=== PATIENT | male | born 1955 | race Caucasian/White ===

== ENCOUNTER → 2021-04-28 | Outpatient (CLI) | payer BC | LOC: COL.VAS 10:00 | DX: M79.662 Pain in left lower leg (principal) ==

== ENCOUNTER 2021-11-04 21:19 | Observation (INO) | payer BC ==
[~2021-11-04] VITALS: Ht 165.1 cm; Wt 92.0 kg
[2021-11-04 21:42] LABS: BASO % 0.4 % (0.0-2.0); EOS # 0.2 K/mm3 (0.0-0.7); EOS % 2.2 % (0.0-4.0); GRAN # 7.4 K/mm3 (1.4-6.5); GRAN % 75.2 % (42.2-75.2); HEMATOCRIT 44.6 % (42.0-52.0); HEMOGLOBIN 14.4 g/dl (13.5-18.0); LYMPH # 1.5 K/mm3 (1.2-3.4); LYMPH % 15.1 % (20.0-51.0); MEAN CELL VOLUME 84 fl (80.0-100.0); MEAN CORPUSCULAR HEMOGLOBIN 27 pg (27-31); MEAN CORPUSCULAR HGB CONC 32 g/dl (33.0-37.0); MEAN PLATELET VOLUME 9.5 fl (7.4-10.4); MONO # 0.7 K/mm3 (0.1-0.6); MONO % 6.9 % (1.7-9.3); PLATELET COUNT 324 K/mm3 (130-400); RED BLOOD COUNT 5.32 M/mm3 (4.20-5.60); REDCELL DISTRIBUTION WIDTH-CV 12.9 % (11.5-14.5)
[2021-11-04 21:44] LABS: COLLECTION METHOD CLEAN CATCH
[2021-11-04 21:50] LABS: PH 6 (5-8); SQUAMOUS EPITHELIAL None Seen /hpf (0-10); URINE APPEARANCE Clear (CLEAR/HAZY); URINE BACTERIA Rare /hpf (NONE SEEN); URINE BILIRUBIN Negative (NEGATIVE); URINE BLOOD Negative (NEGATIVE); URINE COLOR Yellow (YELLOW); URINE GLUCOSE Negative (NEGATIVE); URINE KETONE Negative (NEGATIVE); URINE LEUKOCYTE ESTERASE Negative (NEGATIVE); URINE NITRATE Negative (NEGATIVE); URINE PROTEIN(semi-quant) Negative (NEGATIVE); URINE RBC 0-2 /hpf (0-2); URINE UROBILINOGEN Negative (NEGATIVE)
[2021-11-04 22:00] LABS: ALBUMIN 4.3 gm/dL (3.4-4.8); BILIRUBIN,TOTAL 0.6 mg/dL (0.2-1.2); CALCIUM 9.8 mg/dL (8.4-10.2); CREATININE, serum 1.1 mg/dL (0.72-1.25); POTASSIUM 4.3 mmol/L (3.5-4.5); TOTAL PROTEIN 7.7 gm/dL (6.2-8.1)
[2021-11-04] MEDS ORDERED: DIOVAN320 MG PO (23:50)
[2021-11-04] MEDS ORDERED: ALDACTONE 25MG25 M1 PO (23:50)
[2021-11-04] MEDS ORDERED: REQUIP 1MG T1 MG/TAB PO (23:50)
[2021-11-04] MEDS ORDERED: MOTRIN 600600 MG/TAB PO (23:51)
[2021-11-04] MEDS ORDERED: ASPIRIN 81M81 MG/TA2 PO (23:51)
[2021-11-04] MEDS ORDERED: LOFIBRA54 MG PO (23:51)
[2021-11-05] VITALS (10 sets, daily range): BP systolic 123–149; BP diastolic 69–93; PULSE 74–93; TEMP 98.2–99.2
[2021-11-05] MEDS ORDERED: ZOCOR 40MG40 MG PO (00:01)
--- NOTE | 2021-11-05 00:24 | NUR ---
ARRIVED PER CART TO ROOM 330.
--- NOTE | 2021-11-05 01:15 | NUR ---
PT RATES PAIN TO RLQ 2/10. DOES NOT WANT PAIN MEDS AT THIS TIME. TAKES MELATONIN AND REQUIP WITH SIP OF WATER.
--- NOTE | 2021-11-05 02:22 | NUR ---
PT REPORTS NAUSEA AND MILD PAIN, "JUST DON'T FEEL GOOD". MEDICATED WITH ZOFRAN 4MG IVP AND MORPHINE 2MG IVP AT THIS TIME.
--- NOTE | 2021-11-05 04:30 | NUR ---
PT REPORTS GOOD RELIEF OF NAUSEA AND PAIN. RESTING QUIETLY.
--- NOTE | 2021-11-05 07:45 | NUR ---
pt doing okay this morning. Dr Leigh has been in to talk with pt and planning on surgery this afternoon. All questions answered regarding plan for the day. Pt requested pain medication which was given. Assessed pain pt stated that it is only 2/10 but that he was wanting to get some sleep. Educated pt on pain management and the use of pain medication. Pt denies any other needs, call light within reach
--- NOTE | 2021-11-05 11:20 | NUR ---
Nilsa: No scientology preference Situation: Hospital Cook stopped on rounds Background: PT was resting with in the room. 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
--- NOTE | 2021-11-05 13:06 | NUR ---
Pt off the floor for surery at this time
--- NOTE | 2021-11-05 13:40 | NUR ---
[facility] attempted to meet with patient before noon and patient was on the phone and requested SW to come back. SW followed up this afternoon and patient was in surgery. SW to attempt again tomorrow.
[2021-11-05] MEDS ORDERED: NORCO 325 MG-51 TAB PO (14:10)
--- NOTE | 2021-11-05 15:55 | NUR ---
Pt recently arrived to the floor from pacu. He is alert and oriented with no pain complaints. Incisions x3 to abd are all well approximated with no redness or drainage noted. Pt has tolerated ice chips. Gave him some ice water and applesauce. Educated him on room service and advancing diet. pts in the room at this time
--- NOTE | 2021-11-05 17:28 | NUR ---
Reviewed discharge instructions with pt and his . 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 Pt is not having much pain at this time. He has been up an voided without difficulty. Informed him that it appears that he is having some urinary retention that should be followed up with as an outpatient. Pt has ordered something to eat. He has tolerated applesauce and ice water without any complaints of nausea.
--- NOTE | 2021-11-05 18:15 | NUR ---
Pts has returned, pt tolerated general diet. INT removed. Educated pt that he can get dressed and informed him to notify nursing when he is ready to discharge so that we can walk him out
== END 2021-11-05 18:33 | disposition home or self-care (01) ==
LOC: COL.ER 21:19 → SURG 22:48
PROVIDERS: Emergency Medicine; ADMIT Surgery
DX: K35.891 Other acute appendicitis without perforation, with gangrene (principal); K42.0 Umbilical hernia with obstruction, without gangrene; Z87.891 Personal history of nicotine dependence; Z79.82 Long term (current) use of aspirin
CPT/HCPCS: G0378; J0330; J0690; J0744; J1100; J1885; J2270; J2405; J2704; J3010; J7030; J7120; Q9967

== ENCOUNTER → 2024-03-09 | Outpatient (CLI) | payer BC ==
[~2024-03-09] MED LIST: ALDACTONE 25MG25 M1 PO; ASPIRIN 81M81 MG/TA2 PO; DIOVAN320 MG PO; LOFIBRA54 MG PO; MOTRIN 600600 MG/TAB PO; NORCO 325 MG-51 TAB PO; REQUIP 1MG T1 MG/TAB PO; ZOCOR 40MG40 MG PO
== END ==
LOC: DIA.ED 00:36
DX: E11.9 Type 2 diabetes mellitus without complications (principal); I10 Essential (primary) hypertension; E78.5 Hyperlipidemia, unspecified
CPT/HCPCS: G0108